=== PATIENT | male | born 1985 | race Caucasian/White ===

== ENCOUNTER 2019-02-13 20:46 | Emergency (ER) | payer MEDICAID ==
[~2019-02-13] VITALS: Ht 170.2 cm; Wt 82.1 kg
[2019-02-13 20:52] VITALS: BP 132/111; Ht 170.2 cm; Wt 82.1 kg
== END 2019-02-14 01:18 | disposition home or self-care (01) ==
LOC: ED 20:46
DX: S39.012A Strain of muscle, fascia and tendon of lower back, initial encounter (principal); W18.39XA Other fall on same level, initial encounter; Y93.89 Activity, other specified; Y92.89 Other specified places as the place of occurrence of the external cause; Y99.8 Other external cause status
CPT/HCPCS: J1885; Q0163